=== PATIENT | female | born 1990 | race Caucasian/White ===

== ENCOUNTER → 2017-03-26 | Outpatient (CLI) | payer SELFPAY ==
[2017-03-26 15:47] LABS: BASOPHILS # (AUTO) 0.05 10*3/UL; BASOPHILS % (AUTO) 0.6 % (0-1); EOSINOPHILS # (AUTO) 0.11 10*3/UL; EOSINOPHILS % (AUTO) 1.3 % (0-8); HEMATOCRIT 44.7 % (37.0-47.0); HEMOGLOBIN 15.7 g/dL (12.0-16.0); LYMPHOCYTES # (AUTO) 2.12 10*3/uL; MEAN CORPUSCULAR HEMOGLOBIN 28.8 PG (27-31); MEAN CORPUSCULAR HGB CONC 35.1 g/dL (33-37); MEAN PLATELET VOLUME 8.7 FL (7.4-12.2); MONOCYTES # (AUTO) 0.55 10*3/UL (0.3-0.8); MONOCYTES % (AUTO) 6.3 % (5-15); NEUTROPHILS # (AUTO) 5.91 10*3/UL; NEUTROPHILS % (AUTO) 67.2 % (50-80); RED BLOOD COUNT 5.45 10^6/uL (4.20-5.40)
[2017-03-26 15:52] LABS: PLATELET MORPHOLOGY COMMENT NORMAL MORPHOLOGY (NORM); RBC MORPHOLOGY COMMENT NORMAL MORPHOLOGY (NORM); WBC MORPHOLOGY COMMENT NORMAL MORPHOLOGY (NORM)
[2017-03-26 16:07] LABS: BILIRUBIN,URINE NEGATIVE (NEG); COLOR,URINE YELLOW; GLUCOSE, URINE (UA) NEGATIVE (NEG); NITRATE,URINE NEGATIVE (NEG); OCCULT BLOOD,URINE NEGATIVE (NEG); PH,URINE 5.5 (5.0-8.5); PROTEIN,URINE NEGATIVE (NEG); UROBILINOGEN,URINE 0.2 mg/dL (0.2)
[2017-03-26 16:19] LABS: BACTERIA,URINE RARE; CLARITY,URINE SLIGHTLY CLOUDY (CLEAR); SQUAMOUS EPITHELIAL CELL,UR MODERATE
[2017-03-26 17:07] LABS: HIV ANTIBODY NEGATIVE (N); HIV-1 P24 ANTIGEN NEGATIVE (N)
[2017-03-26 17:33] LABS: URINE SAMPLE TYPE CLEAN CATCH URINE
[2017-03-28 11:51] LABS: HEP B SURFACE AG Negative (Negative)
== END ==
LOC: MOB LAB 13:47
PROVIDERS: ATTEND Obstetrics & Gynecology
DX: O99.281 Endocrine, nutritional and metabolic diseases complicating pregnancy, first trimester (principal); E03.9 Hypothyroidism, unspecified; Z36 Encounter for antenatal screening of mother
CPT/HCPCS: 36415; 80081; 81001; 84439; 86900; 86901; 87088; 87491; 87591

== ENCOUNTER → 2017-03-28 | Outpatient (CLI) | payer SELFPAY ==
[2017-03-30 14:43] LABS: 24 HOUR URINE TOTAL VOLUME 2325 ML
== END ==
LOC: LAB 11:26
PROVIDERS: ATTEND Obstetrics & Gynecology
DX: O09.291 Supervision of pregnancy with other poor reproductive or obstetric history, first trimester (principal)
CPT/HCPCS: 84156

== ENCOUNTER → 2017-05-23 | Outpatient (CLI) | payer SELFPAY | LOC: LAB 09:36 | PROVIDERS: ATTEND Obstetrics & Gynecology | DX: O99.281 Endocrine, nutritional and metabolic diseases complicating pregnancy, first trimester (principal); E03.9 Hypothyroidism, unspecified; O26.891 Other specified pregnancy related conditions, first trimester; R81 Glycosuria | CPT/HCPCS: 36415; 82950; 84439 ==

== ENCOUNTER → 2017-06-16 | Outpatient (CLI) | payer SELFPAY ==
--- NOTE | 2017-06-16 12:52 | DI ---
OBSTETRICAL ULTRASOUND, 06/16/2017 9:49 AM: Clinical History: Antepartum screening. Previous Exam: None at this facility for this . ADJUSTED DATE FROM EARLY OBUS: 01/24/2017. There is a single live IUP currently in vertex presentation. Amnionic fluid content is normal. activity is observed as follows: cardiac and extremity. The placenta is anterior corpus and Grade 1. heart rate varies between 135-178 beats/minute and is regular. There is a 3 vessel cord. The RV OT, LVOT and 4 chamber heart view are normal. The aortic arch and descending aorta are normal. Views of the spine, face, and kidneys are unremarkable. BPD, HC, AC, and FL measurements are 46 mm, 1 77 mm, 161 mm, and 35 mm, respectively. These measurements correspond to EGA values of 20 weeks 0 day s, 20 weeks 2 days, 21 weeks 2 days and 21 weeks 1 day, respectively. Composite EGA is 20 weeks 5 day s. The US EDC is 10/29/2017. EDC by adjusted LMP is 10/31/2017. Readin. Single live fetus with vertex presentation and normal amniotic fluid content. Placenta is anterio r corpus and grade 1. 2. The composite EGA is 20 weeks 5 days with an ultrasound EDC of 10/29/2017. Based on the adjusted LMP date of 01/24/2017, the EDC would be 10/31/2017. 3. Anatomic survey is complete and normal.
== END ==
LOC: US 09:46
PROVIDERS: ATTEND Obstetrics & Gynecology
DX: Z36 Encounter for antenatal screening of mother (principal); Z3A.20 20 weeks gestation of pregnancy
CPT/HCPCS: 76805

== ENCOUNTER → 2017-06-25 | Outpatient (CLI) | payer SELFPAY | LOC: MOB LAB 15:48 | PROVIDERS: ATTEND Obstetrics & Gynecology | DX: O99.282 Endocrine, nutritional and metabolic diseases complicating pregnancy, second trimester (principal); E03.9 Hypothyroidism, unspecified; Z3A.21 21 weeks gestation of pregnancy | CPT/HCPCS: 36415; 84439; 84481 ==

== ENCOUNTER → 2017-07-03 | Outpatient (CLI) | payer SELFPAY | LOC: MOB LAB 17:17 | PROVIDERS: ATTEND Obstetrics & Gynecology | DX: O99.412 Diseases of the circulatory system complicating pregnancy, second trimester (principal); R00.0 Tachycardia, unspecified; Z3A.23 23 weeks gestation of pregnancy | CPT/HCPCS: 36415; 84439 ==

== ENCOUNTER → 2017-07-04 | Outpatient (CLI) | payer SELFPAY | LOC: EKG 14:58 | PROVIDERS: ATTEND Obstetrics & Gynecology | DX: O26.892 Other specified pregnancy related conditions, second trimester (principal); R00.2 Palpitations; Z3A.23 23 weeks gestation of pregnancy | CPT/HCPCS: 93270 ==

== ENCOUNTER 2017-10-09 17:42 | Inpatient (IN) ==
[2017-10-09 18:41] LABS: Hematocrit [HCT] 33.7 % (37.0-47.0); MEAN CORPUSCULAR HEMOGLOBIN 27.9 PG (27-31); MEAN CORPUSCULAR HGB CONC 32.6 g/dL (33-37); MEAN CORPUSCULAR VOLUME 85.5 FL (81-99); MEAN PLATELET VOLUME 8.8 FL (7.4-12.2); RED BLOOD COUNT 3.94 10^6/uL (4.20-5.40)
[2017-10-09 18:51] LABS: BLOOD UREA NITROGEN 3 mg/dL (7-22); SERUM ALBUMIN 3.3 g/dL (3.5-4.8)
[2017-10-09 19:03] LABS: Uric Acid 2.9 mg/dl (2.5-6.2)
[2017-10-09] MEDS ORDERED: POTASSIUM CHLORIDE 20 MEQ TAB PO ONE (19:51)
[2017-10-09] MEDS ORDERED: ACETAMINOPHEN 325 MG TABLET PO ONE (21:10)
[2017-10-09] MEDS ORDERED: BETAMET ACET/BETAMET NA PH 6 MG/1 ML - 5 ML IM SCH (21:15)
[2017-10-09] MEDS: Zolpidem Tab 5 MG TAB PO PRN (22:33)
[2017-10-10 06:44] LABS: Hematocrit [HCT] 34.5 % (37.0-47.0); Hemoglobin [HGB] 11.2 g/dL (12.0-16.0); MEAN CORPUSCULAR HEMOGLOBIN 27.7 PG (27-31); MEAN CORPUSCULAR HGB CONC 32.5 g/dL (33-37); MEAN CORPUSCULAR VOLUME 85.4 FL (81-99); MEAN PLATELET VOLUME 9.3 FL (7.4-12.2); RED BLOOD COUNT 4.04 10^6/uL (4.20-5.40)
[2017-10-10 07:15] LABS: BLOOD UREA NITROGEN 3 mg/dL (7-22); SERUM ALBUMIN 3.2 g/dL (3.5-4.8); Uric Acid 3.3 mg/dl (2.5-6.2)
--- NOTE | 2017-10-10 12:28 | OB.PROGRES ---
Date and Time of Service: 10/10/17 @ 0845 Interval History: Ms. Maya is a 27 yo at 37 0/7 weeks today, who presented to labor and delivery last noc complaining of increased swelling to her lower legs and feet. The swelling is causing pain. She states that her feet first started swelling 2 weeks ago. She denies any TEJEDA, RUQ pain, vision changes or other sx. She has not been feeling any contractions; denies any vaginal bleeding, gushes of fluid or vaginal discharge. Her baby has been moving normally. Her first , 6 years ago, was complicated by pre-eclampsia that developed 2-3 days after she delivered in [place]. The only symptom that she had at that point was swelling to her lower extremities as well. She had to be on magnesium sulfate for 1-2 days and then her pressures normalized. She was on a blood pressure pill for several months after. She has not been on anything for her blood pressures since that time. Last night, her blood pressures were generally in the 140/80s; there were some pressures that were higher and some that were lower. She had not had any TEJEDA, but did develop one last noc while on the unit. She was given tylenol with good relief and doesn't have a TEJEDA today. Her AST was slightly elevated at 54, the rest of her liver enzymes were normal. She was not hemoconcentrated. Platelets were normal. LDH was normal. Her creatinine was 0.4. She was observed and monitored overnoc. She was feeling well this morning. She is having some contractions on the monitor, but not feeling them. Her GBS is negative. NST is reactive. Her labs are essentially unchanged from last noc. Her blood pressures are also essentially unchanged and the pt has been resting in bed for the most part. Objective - Cervical Exam Cervical Exam: FT/thick/-3 per RN last noc. [place]ia: irritability; occasional contractions (every 4-9 minutes), palpating mild. Heart Rate: baseline 115-120; moderate variability, no decels. Accels present. Heart Rate Interpretation Category: Category I - Labs CBC and BMP: 10/10/17 04:56 10/10/17 04:56 - Vital Signs Last Taken Vital Signs: Vital Signs - Last Taken Temperature 97.7 F 10/10/17 07:45 Pulse Rate 98 10/10/17 07:45 Respiratory Rate 20 10/10/17 07:45 Blood Pressure 128/76 10/10/17 07:45 Pulse Ox 98 10/10/17 07:45 Assessment and Plan - Patient Problems (1) Proteinuria affecting Current Visit: Yes Status: Acute Code(s): O12.10 - Gestational proteinuria, unspecified trimester (2) Elevated blood pressure affecting in third trimester, antepartum Current Visit: Yes Status: Acute Code(s): O13.3 - Gestational [- induced] hypertension without significant proteinuria, third trimester - Assessment / Plan Additional Assessment/Plan Details: -discussed pt with her primary provider, Dr. Pulido this morning. We agreed that she will likely need to be induced if her 24 hour urine protein is >300 mg tonight. -she did receive 1 dose of celestone last noc when then nurse accidentally told me that she was 36 4/7 weeks, she doesn't need another dose tonight because she is 37 weeks. -GBS negative. -consider magnesium sulfate in active labor if she is induced. -takes synthroid 162 mcg daily for hypothyroidism and is also taking sertraline 100 mg daily for anxiety. -pt's care will be turned over to the weekend on-call provider, Dr. Evans later this afternoon. He was given a full report by phone at 1200 on 10/10.
[2017-10-10] MEDS ORDERED: CALCIUM CARBONATE 500 MG (TUMS) CHEWABLE TABLET PO PRN ×2 (13:42→22:37)
[2017-10-10] MEDS: POTASSIUM CHLORIDE 20 MEQ TAB PO SCH ×2 (15:11→21:01)
[2017-10-10] MEDS ORDERED: Sertraline Tab 50 MG TAB PO SCH (21:00)
[2017-10-10] MEDS: ASPIRIN 81 MG (BABY) CHEWABLE TABLET PO SCH (21:00)
[2017-10-10] MEDS: ASPIRIN 81 MG PO SCH (21:00)
[2017-10-10] MEDS: IRON FU PO SCH (21:01)
[2017-10-10] MEDS: FOLIC ACID PO SCH (21:01)
[2017-10-10] MEDS: PRENATAL PO SCH (21:01)
[2017-10-10] MEDS: SERTRALINE HCL 100 MG PO SCH (21:02)
[2017-10-10] MEDS: LEVOTHYROXINE PO SCH (21:03)
[2017-10-10 22:26] LABS: 24 HOUR URINE TOTAL VOLUME 2750 ML
[2017-10-10] MEDS ORDERED: BUTORPHANOL TARTRATE 2 MG/1 ML VIAL IVP PRN (22:37)
[2017-10-10] MEDS ORDERED: CefOXitin Inj 2 GM in Sodium Chloride 0.9% 100 ML IV PRN (22:37)
[2017-10-10] MEDS ORDERED: Carboprost Inj 250 MCG/ML AMP IM PRN (22:37)
[2017-10-10] MEDS ORDERED: TERBUTALINE SULFATE 1 MG/1 ML SDV SUBCUT PRN (22:37)
[2017-10-10] MEDS ORDERED: LIDOCAINE W/ SODIUM BICARB 0.5 ML SYR SUBD PRN (22:37)
[2017-10-10] MEDS ORDERED: CITRIC ACID/SODIUM CITRATE 30 ML CUP PO PRN (22:37)
[2017-10-10] MEDS ORDERED: diphenhydrAMINE 50 MG/1 ML VIAL IVP PRN (22:37)
[2017-10-10] MEDS ORDERED: NORMAL SALINE 10 ML SYRINGE FLUSH IVP PRN (22:37)
[2017-10-10] MEDS ORDERED: ePHEDrine Inj 5 MG in Normal Saline Flush 1 ML IVP PRN (22:37)
[2017-10-10] MEDS ORDERED: MISOPROSTOL 200 MCG TABLET RECTAL PRN (22:37)
[2017-10-10] MEDS ORDERED: Naloxone Inj 0.01 MG in Normal Saline Flush 1 ML IVP PRN (22:37)
[2017-10-10] MEDS ORDERED: OXYTOCIN 10 UNIT/1 ML IM PRN (22:37)
[2017-10-10] MEDS ORDERED: METHYLERGONOVINE MALEATE 0.2 MG/1 ML VIAL IM PRN (22:37)
[2017-10-10] MEDS ORDERED: Lidocaine 1% 10 MG/ML - 20 ML VIAL SUBCUT PRN (22:37)
[2017-10-10] MEDS ORDERED: Metoclopramide Inj 10 MG/2 ML VIAL IV PRN (22:37)
[2017-10-10] MEDS ORDERED: ONDANSETRON 4 MG/2 ML VIAL IVP PRN (22:37)
[2017-10-10] MEDS ORDERED: NALOXONE 0.4 MG/1 ML VIAL IVP PRN (22:37)
[2017-10-10] MEDS ORDERED: Famotidine Inj 20 MG in Normal Saline Flush 10 ML IVP PRN ×4 (22:37)
[2017-10-10] MEDS ORDERED: LIDOCAINE HCL 2 % 10 ML JELLY URO-JECT TOPICAL PRN (22:37)
[2017-10-10] MEDS ORDERED: Phenylephrine Inj 50 MCG in Normal Saline Flush 0.5 ML IVP PRN (22:37)
[2017-10-10] MEDS ORDERED: Nalbuphine Inj 20 MG/ML Ampule IVP PRN (22:37)
[2017-10-10] MEDS ORDERED: Oxytocin 20 Units + LR 20 UNIT/1,000 ML BAG IV SCH (22:45)
[2017-10-10] MEDS: Lactated Ringers-OB Dept 1,000 ML PRIMARY IV SCH (23:25)
[2017-10-10] MEDS: Misoprostol Tab 100 MCG TAB VAGINAL PRN (23:51)
[2017-10-10] MEDS: Zolpidem Tab 5 MG TAB PO PRN (23:58)
[2017-10-11] MEDS: Misoprostol Tab 100 MCG TAB VAGINAL PRN (03:58)
[2017-10-11] MEDS ORDERED: Oxytocin 20 Units + LR 20 UNIT/1,000 ML BAG IV SCH (08:30)
[2017-10-11] MEDS: POTASSIUM CHLORIDE 20 MEQ TAB PO SCH ×3 (08:44→21:04)
[2017-10-11] MEDS: ASPIRIN 81 MG (BABY) CHEWABLE TABLET PO SCH (09:00)
[2017-10-11] MEDS ORDERED: LEVOTHYROXINE 25 MCG TABLET PO SCH (09:00)
--- NOTE | 2017-10-11 09:31 | OB.PROGRES ---
Interval History: This 27 yo at 37 1/7 weeks EGA is being induced for mild pre-eclampsia with 24 hour urine protein of 485 and slightly elevated LFTs. Her blood pressures have been mostly in the normal to only slightly elevated range. Her cervix is 2 cm/30%/-4. US confirms cephalic lie this morning. She got two doses of cytotec overnight and was recently started on pitocin. She is rosette q 2 min with increasing intensity. FHRT is category 1. AM labs are pending. Plan amniotomy when the head descends in the pelvis and the cervix is more dilated. Anticipate . Objective - Labs CBC and BMP: 10/10/17 04:56 10/10/17 04:56 - Vital Signs Last Taken Vital Signs: Vital Signs - Last Taken Temperature 97.8 F 10/11/17 07:37 Pulse Rate 91 10/11/17 07:37 Respiratory Rate 20 10/11/17 07:37 Blood Pressure 142/80 10/11/17 07:37 Pulse Ox 98 10/11/17 07:37
[2017-10-11 09:50] LABS: SERUM ALBUMIN 3.1 g/dL (3.5-4.8)
[2017-10-11 10:16] LABS: BLOOD UREA NITROGEN 2 mg/dL (7-22); BUN/CREATININE RATIO 6.66 (6-20)
[2017-10-11] MEDS ORDERED: POTASSIUM CHLORIDE 20 MEQ TAB PO SCH (10:28)
[2017-10-11] MEDS: Lactated Ringers-OB Dept 1,000 ML PRIMARY IV SCH (13:00)
[2017-10-11] MEDS: FOLIC ACID PO SCH (21:03)
[2017-10-11] MEDS: PRENATAL PO SCH (21:03)
[2017-10-11] MEDS: IRON FU PO SCH (21:03)
[2017-10-11] MEDS: Zolpidem Tab 5 MG TAB PO PRN (21:04)
[2017-10-11] MEDS: LEVOTHYROXINE PO SCH (21:05)
[2017-10-11] MEDS: SERTRALINE HCL 100 MG PO SCH (21:06)
[2017-10-11] MEDS: ASPIRIN 81 MG PO SCH (21:06)
[2017-10-12] MEDS: Lactated Ringers-OB Dept 1,000 ML PRIMARY IV SCH (05:18)
[2017-10-12 07:05] LABS: Hematocrit [HCT] 33.4 % (37.0-47.0); Hemoglobin [HGB] 10.8 g/dL (12.0-16.0); MEAN CORPUSCULAR HEMOGLOBIN 27.6 PG (27-31); MEAN CORPUSCULAR HGB CONC 32.3 g/dL (33-37); MEAN CORPUSCULAR VOLUME 85.4 FL (81-99); MEAN PLATELET VOLUME 8.8 FL (7.4-12.2); RED BLOOD COUNT 3.91 10^6/uL (4.20-5.40)
[2017-10-12 07:30] LABS: BLOOD UREA NITROGEN 2 mg/dL (7-22); BUN/CREATININE RATIO 6.66 (6-20)
--- NOTE | 2017-10-12 09:21 | OB.PROGRES ---
Interval History: The patient was on pitocin all day yesterday, but did not progress into active labor. Her baby's FHRT remained category 1. Pitocin was stopped last evening so she could sleep and restarted this AM. She remains 3 cm dilated. Amniotomy was performed just now with return of clear fluid. She is rosette q 3 min, but is not in much discomfort as yet. FHRT remains category 1 and her BP is stable. AM labs are also stable. Will hold off on magnesium seizure prophylaxis for now as she is showing no signs of severe Pre Eclampsia at this time. Anticipate once she achieves active labor. Objective - Labs CBC and BMP: 10/12/17 06:45 10/12/17 06:45 - Vital Signs Last Taken Vital Signs: Vital Signs - Last Taken Temperature 97.6 F 10/12/17 06:57 Pulse Rate 103 H 10/12/17 06:57 Respiratory Rate 20 10/12/17 06:57 Blood Pressure 132/81 10/12/17 06:57 Pulse Ox 97 10/12/17 05:30
[2017-10-12] MEDS: POTASSIUM CHLORIDE 20 MEQ TAB PO SCH ×2 (09:43→17:36)
[2017-10-12] MEDS: fentaNYL Inj 100 MCG/2 ML VIAL IV PRN ×3 (10:33→12:29)
[2017-10-12] MEDS ORDERED: Fent/Bupiv 2mcg/0.0625% Epid 250 ML ONE (13:40)
[2017-10-12] MEDS ORDERED: LIDOCAINE MPF 2% - 5 ML (20 MG/1 ML) ONE (13:40)
[2017-10-12] MEDS ORDERED: fentaNYL 2 MCG/BUPIVACAINE 0.0625%/NS 0.9% 250 ML BAG EPIDURAL ONE (14:50)
--- NOTE | 2017-10-12 14:50 | CRNA.PROCE ---
Central Neuraxis Block Placemt - - Safety Measures: Site Verified - - Type of Block: Epidural Reason for Block: Analgesia (Labor) Moniters Used During Block: SPO2, NIBP Positioning: Sitting Skin Prep Used: Betadine Draped: Yes Skin Infiltration - Enter Amount Used in Comment Field: 1% Xylocaine (mL): Yes ( 1.5ML) Spinal Needle Used: 18 Hustead 80 mm (WILBERT with saline) Number of Centimeters Catheter Threaded: 3.5 Bioclusive Dressing Applied: Yes (skin prep under any adhesive.) Anesthesia Time - Other Weight: 86.183 kg Height: 5 ft 5.5 in Body Mass Index (BMI): 31.1
[2017-10-12] MEDS ORDERED: Naloxone Inj 0.01 MG in Normal Saline Flush 1 ML IVP PRN (14:51)
[2017-10-12] MEDS ORDERED: NALOXONE 0.4 MG/1 ML VIAL IVP PRN (14:51)
[2017-10-12] MEDS ORDERED: BUTORPHANOL TARTRATE 2 MG/1 ML VIAL IVP PRN (14:51)
[2017-10-12] MEDS ORDERED: Phenylephrine Inj 50 MCG in Normal Saline Flush 0.5 ML IVP PRN (14:51)
[2017-10-12] MEDS ORDERED: Nalbuphine Inj 20 MG/ML Ampule IVP PRN ×2 (14:51→18:39)
[2017-10-12] MEDS ORDERED: diphenhydrAMINE 50 MG/1 ML VIAL IVP PRN ×2 (14:51→18:39)
[2017-10-12] MEDS ORDERED: ePHEDrine Inj 5 MG in Normal Saline Flush 1 ML IVP PRN (14:51)
--- NOTE | 2017-10-12 14:53 | CRNA.PROGR ---
Anesthesia Time - - Start date: 10/12/17 End date: 10/12/17 - Procedure/Recovery Time Anesthesia : Time In: 13:15 Anesthesia : Time Out: 16:57 Anesthesia : Total Time: 222 - Total Anesthesia Time Total Anesthesia Time (minutes): 222 - Other Weight: 86.183 kg Height: 5 ft 5.5 in Body Mass Index (BMI): 31.1 Physical Status: P2 () Anesthesia Type: Epidural Obstetrics: Planned vaginal delivery w/ neuraxial labor anesthesia/analog
--- NOTE | 2017-10-12 14:56 | CRNA.PROGR ---
Anesthesia Note - Progress Notes Anesthesia Progress Note: Test dose of 4ml 1.5% xylocaine with epi at 1330. 5 ml 2%mpf lidocaine via epidural at 1342. Starte epidural infusion of 1/16% lBupivicaine with Fentanyl 2 mcg per ml at 1355. See orders. 8 ml 3% Nesacaine via epidural for increased discomfort at 1543. Another 4.5 ml of 3%Nesacaine via epidural at 1557. she states she can't feel contractions but rectal pressure has not been decreased. " It feels like I have to poop" Pushing at 1635 . Baby delivered at 1644. Placenta delivered.
[2017-10-12] MEDS ORDERED: Chloroprocaine 3% MPF (30mg/ml) 20ml vial ONE (15:39)
--- NOTE | 2017-10-12 17:09 | OB.DEL.SUM ---
Delivery Note Delivery Summary: After finally achieving active labor, she progressed well with epidural analgesia to complete dilation at +2 station. An anterior lip was manually reduced with one pushing effort. She then pushed twice more to of a viable female infant, Apgars 8/9, weight 7 lbs 4 oz, over a second degree midline posterior vaginal/perineal laceration. The placenta delivered promptly , spontaneously, intact, with a 3 vessel cord. Repair was made with 3-0 Vicryl Rapide suture in the usual manner. EBL 250 ml. There were no complications. Mother and baby tolerated delivery well. Will observe for possible need for magnesium seizure prophylaxis, but will hold for now with no evidence of severe Pre E.
[2017-10-12] MEDS ORDERED: LANOLIN HPA 40 GM TUBE TOPICAL PRN (18:39)
[2017-10-12] MEDS ORDERED: ACETAMINOPHEN 325 MG TABLET PO PRN (18:39)
[2017-10-12] MEDS ORDERED: ONDANSETRON 4 MG/2 ML VIAL IVP PRN (18:39)
[2017-10-12] MEDS ORDERED: oxyCODONE-ACETAMINOPHEN 5-325 TAB PO PRN (18:39)
[2017-10-12] MEDS ORDERED: LIDOCAINE HCL 2 % 10 ML JELLY URO-JECT TOPICAL PRN (18:39)
[2017-10-12] MEDS ORDERED: Oxytocin 20 Units + LR 20 UNIT/1,000 ML BAG IV SCH (18:39)
[2017-10-12] MEDS ORDERED: DIPH,PERTUSS,TET(ADACEL) VAC/PF 0.5 ML (Tdap) IM ONE (18:39)
[2017-10-12] MEDS ORDERED: diphenhydrAMINE 25 MG CAPSULE PO PRN (18:39)
[2017-10-12] MEDS ORDERED: IBUPROFEN 800 MG TABLET PO PRN (18:39)
[2017-10-12] MEDS ORDERED: NORMAL SALINE 10 ML SYRINGE FLUSH IVP PRN (18:39)
[2017-10-12] MEDS ORDERED: BENZOCAINE/MENTHOL SPRAY 56 GM BOTTLE TOPICAL ONE (20:35)
[2017-10-12] MEDS ORDERED: GLYCERIN/WITCH HAZEL 1 BOX TOPICAL ONE (20:35)
[2017-10-12] MEDS ORDERED: ASPIRIN 81 MG (BABY) CHEWABLE TABLET PO SCH (21:00)
[2017-10-12] MEDS: DOCUSATE 100 MG CAPSULE PO SCH (21:00)
[2017-10-12 23:09] VITALS: O2SAT 98
[2017-10-13 05:40] LABS: Hematocrit [HCT] 34.4 % (37.0-47.0); Hemoglobin [HGB] 11.2 g/dL (12.0-16.0); MEAN CORPUSCULAR HEMOGLOBIN 27.7 PG (27-31); MEAN CORPUSCULAR HGB CONC 32.6 g/dL (33-37); MEAN CORPUSCULAR VOLUME 85.1 FL (81-99); RED BLOOD COUNT 4.04 10^6/uL (4.20-5.40)
[2017-10-13 08:00] LABS: BLOOD UREA NITROGEN < 2 mg/dL (7-22)
--- NOTE | 2017-10-13 08:43 | OB.PROGRES ---
Subjective Post Op Day: 1 Pain Management: PO Ruffin Catheter: No Diet: Regular [place] Feeding Method: / Bottle (The patient states that the baby does not like the breast milk currently.) Ambulating: Yes Concerns / Additional Information: The patient states that she has no headache. The patient feels well. She would like to go home today since she is self-pay. She will purchase a blood pressure cuff if she needs to. Objective - General General Appearance: POSITIVE: No Acute Distress, Cooperative Other General Details: Reflexes were 3+ bilaterally lower extremity patellar reflexes. No clonus bilaterally - Cardiovacular Edema: +2 Pedal Edema Extremities: Negative Dimitry's - Bilaterally - Respiratory Respiratory Exam: POSITIVE: Clear to Auscultation - Bilaterally - Abdomen Bowel Sounds: Present Other Abdominal Exam Details: Fundus is at U -0, firm, nontender Assesstment / Plan Assessment / Plan: Assessment: day #1 status post induction of labor for preeclampsia without signs or symptoms of severe preeclampsia except for initial headache that was intermittent. The patient was managed and delivered by my CORPORATE TRAINING MANAGER partner as I was away this weekend. The patient's H&H is not hemoconcentrated with an H&H of 11 and 34. Platelets are normal. Creatinine is 0.4. Liver function tests were not completed today. The patient's liver function tests were never elevated above 70 and they were decreasing. The patient's blood pressures were minimally elevated earlier this morning at 145/88 and the last blood pressure was 130s over 89. Plan: I explained to the patient that usually I observe patient's until least day #2 when the patient is induced for preeclampsia. However, the patient expressed that she is self-pay and cannot afford to stay another day. The patient stated that she will return to the clinic for blood pressure checks or purchase a blood pressure kit and complete her blood pressures at home. I would like to observe the patient during the day today with the patient up and ambulating to follow her blood pressures and then I will check back with the patient early this evening to determine how her blood pressures have been during the day. Also I will check her symptoms. The patient expressed understanding with this plan and hopefully the patient will be discharged later today.
[2017-10-13] MEDS: DOCUSATE 100 MG CAPSULE PO SCH (09:00)
[2017-10-13] MEDS ORDERED: Prenatal Multivitamin Tab 1 TAB TAB PO SCH (09:00)
[2017-10-13] MEDS: POTASSIUM CHLORIDE 20 MEQ TAB PO SCH ×2 (09:35→15:05)
[2017-10-13 16:26] VITALS: RESP 20; TEMP 97.7
--- NOTE | 2017-10-13 17:17 | OB.PROGRES ---
Subjective Post Op Day: 1 Pain Management: PO Ruffin Catheter: No Flatus: Yes Diet: Regular Feeding Method: / Bottle Ambulating: Yes Concerns / Additional Information: The patient states that she feels well. No headache. No right upper quadrant pain. The patient does not recall the specifics 6 years ago when she had preeclampsia but she thinks that she just had swelling that was significant and came in and her blood pressures were elevated significantly. The patient would like to go home. She is self-pay. The patient states that she has lots of help at home. Objective - General General Appearance: POSITIVE: No Acute Distress, Cooperative - Cardiovacular Cardiovascular Exam: POSITIVE: RRR Edema: +2 Pedal Edema Extremities: Negative Dimitry's - Bilaterally - Respiratory Respiratory Exam: POSITIVE: Clear to Auscultation - Bilaterally - Abdomen Bowel Sounds: Present (Abdomen soft and nontender without guarding or rebound.) Assesstment / Plan Assessment / Plan: Assessment: day #1 status post spontaneous vaginal delivery after induction of labor for preeclampsia without signs or symptoms of severe preeclampsia. Patient did have a brief headache which resolved with Tylenol. The patient's blood pressures today have been mildly elevated with the last blood pressure 148/90 that the nurse just took and previous to that 146/89. The patient is asymptomatic. No clonus. Reflexes 2+ bilaterally. The patient's labs this morning showed normal platelets and and H&H which was not hemoconcentrated. Creatinine was 0.4. Plan: I explained to the patient that it is standard care and most institutions for patients to stay until day #2 when they were diagnosed with preeclampsia without signs or symptoms of severe preeclampsia to follow the patient's blood pressures to ensure that they decrease or to start an antihypertensive. With the patient's history of preeclampsia, and the patient has another risk factor for continuing in the hospital for another day considering the blood pressures that she has had this afternoon. However, I do understand the fact that she is a self-pay patient and does not want to pay for another day in the hospital. I did explain to the patient that often mildly elevated blood pressures will resolve but sometimes I do need to place the patient on an antihypertensive for 6+ weeks. I would determine that tomorrow depending upon her blood pressures or if her blood pressures elevated tonight. The patient is considering her options. I went back into the patient's room to discuss with the patient what she wanted to do. The patient spoke with her [id number] who works as a medical office assistant. The patient stated that she would like to go home and understands that she will sign a form AGAINST MEDICAL ADVICE. However, the patient does understand that we would be glad to care for her in the future. The patient will go home with ibuprofen, Colace and a vitamin. The patient wishes to have Depo-Provera administered at 6 weeks and she is breast- feeding. Please see the discharge plan note.
--- NOTE | 2017-10-13 17:50 | DCSUMMARY ---
Hospitalization Summary Admit Date: 10/10/17 Discharge Date: 10/13/17 (AMA) Primary Diagnosis:: IUP 37 weeks with preeclampsia without signs or symptoms Primary Surgery and Date: 10/12/2017. Spontaneous vaginal delivery after induction of labor. Repair of laceration Delivery Type: Vaginal Hospital Course: Patient was admitted and was diagnosed with preeclampsia without signs or symptoms of severe preeclampsia. Patient underwent induction of labor with Cytotec and then Pitocin. Patient had spontaneous vaginal delivery on 2016. day #1 showed H&H to be 11 and 34 and platelets normal. Creatinine was 0.4. Blood pressures in the afternoon of day #1 were mildly elevated 148/ 90 and 146/89. Patient was asymptomatic. Reflexes were 2+ bilaterally and no clonus. The patient desired to go home. I explained to the patient that I keep patient' s with preeclampsia until at least day #2 to observe the patient's blood pressures. However, the patient is self-pay and desires to go home today. The patient will sign out AMA but will return in the morning for a blood pressure check at the medical office building with me. The patient knows to return for symptoms of preeclampsia such as headache or right upper quadrant pain or just not feeling well. Also increased swelling. The patient expressed understanding. / Postop Complications: Please see above. [place] Complications: The patient had no known complications. Exam - Vitals Vital Signs: Vital Signs Temperature 97.7 F Temperature Source Oral Pulse Rate [Pulse Oximeter] 90 Pulse Rate 93 Respiratory Rate 20 Blood Pressure [Right Arm] 146/89 Blood Pressure 144/76 Pulse Ox 98 Oxygen Flow Rate 100 Oxygen Delivery Method Room Air Height 5 ft 5.5 in Weight 190 lb
[2017-10-13 20:47] VITALS: BP 145/92
[2017-10-13] MEDS ORDERED: LEVOTHYROXINE PO SCH (21:00)
[2017-10-13] MEDS ORDERED: PRENATAL PO SCH (21:00)
[2017-10-13] MEDS ORDERED: SERTRALINE HCL 100 MG PO SCH (21:00)
[2017-10-13] MEDS ORDERED: FOLIC ACID PO SCH (21:00)
[2017-10-13] MEDS ORDERED: ASPIRIN 81 MG (BABY) CHEWABLE TABLET PO SCH (21:00)
[2017-10-13] MEDS ORDERED: ASPIRIN 81 MG PO SCH (21:00)
[2017-10-13] MEDS ORDERED: IRON FU PO SCH (21:00)
== END 2017-10-13 20:25 | disposition left against medical advice (07) | DRG 774 ==
LOC: OBIP 17:42 → OBOP 17:42
PROVIDERS: ADMIT Family Medicine; ATTEND Obstetrics & Gynecology